=== PATIENT | male | born 1965 | race American Indian/Alaskan Native ===

== ENCOUNTER 2021-01-22 19:48 | Emergency (ER) | payer OTHER ==
--- NOTE | 2021-01-22 20:40 | Event Note ---
ED Screening Note Date of service: 01/22/21 Time: 20:38 ED Screening Note: Pt is a 55 y/o male who presents for abdominal pain x 3 days, pt states dx with Jian, was advised to present to ED for same, pt states abd pain is rated as 5/10 sharp achy . This initial assessment/diagnostic orders/clinical plan/treatment(s) is/are subject to change based on patients health status, clinical progression and re- assessment by fellow clinical providers in the ED. Further treatment and workup at subsequent clinical providers discretion. Patient/guardian urged not to elope from the ED as their condition may be serious if not clinically assessed and managed. Initial orders include:
[2021-01-22 21:12] LABS: Basophils % (Auto) 0.7 % (0.0-1.8); Eosinophils # (Auto) 0.4 K/mm3 (0.0-0.4); Eosinophils % (Auto) 7.2 % (0.0-4.3); Lymphocytes # (Auto) 2.6 K/mm3 (1.2-5.4); Lymphocytes % (Auto) 47.9 % (13.4-35.0); Mean Corpuscular HGB Conc 36 % (32-34); Mean Corpuscular Volume 93 fl (84-94); Monocytes # (Auto) 0.5 K/mm3 (0.0-0.8); Monocytes % (Auto) 9.1 % (0.0-7.3); Platelet Count 241 K/mm3 (140-440); Red Blood Count 4.32 M/mm3 (3.65-5.03); Red Cell Distribution Width 15.7 % (13.2-15.2)
[2021-01-22 21:14] LABS: Hematocrit 40.1 % (35.5-45.6); Hemoglobin 14.4 gm/dl (11.8-15.2)
[2021-01-22 21:28] LABS: Alanine Aminotransferase 22 units/L (7-56); Albumin 4.1 g/dL (3.9-5); BUN/Creatinine Ratio 8; Blood Urea Nitrogen 7 mg/dL (9-20); Calcium 9.1 mg/dL (8.4-10.2); Hemolysis Index 16
[2021-01-23 00:55] VITALS: BP 170/104
--- NOTE | 2021-01-23 00:57 | Emergency Department Report ---
ED General Adult HPI - General Chief complaint: Abdominal Pain Stated complaint: N/V, ABDOMINAL PAIN Time Seen by Provider: 01/23/21 00:47 Source: patient Mode of arrival: Ambulatory Limitations: No Limitations - History of Present Illness Initial comments: Patient is a 55-year-old male presents emergency room with complaints of wanting testing for H. pylori. He states that his tested positive for H. pylori when she was at [facility] and they advised him to get testing as well. He has not followed up with her primary care doctor or GI doctor. He states 2 days ago he had some nausea and a couple episodes of vomiting with that has comple tely resolved. He denies any symptoms at all currently. He denies any abdominal pain, back pain, chest pain, fever, diarrhea, hematochezia, hematemesis, melena. He denies any past medical history. No allergies to medications. - Related Data Previous Rx's Medication Instructions Recorded Last Taken Type Famotidine [Pepcid] 40 mg PO QHS #14 tablet 01/23/21 Unknown Rx Ondansetron [Zofran Odt] 4 mg PO Q8HR PRN #10 tab.rapdis 01/23/21 Unknown Rx Allergies Allergy/AdvReac Type Severity Reaction Status Date / Time peanut Allergy Hives Verified 11/13/18 23:56 ED Review of Systems ROS: Stated complaint: N/V, ABDOMINAL PAIN Other details as noted in HPI Comment: All other systems reviewed and negative ED Past Medical Hx - Past Medical History Previous Medical History?: No - Surgical History Past Surgical History?: Yes Additional Surgical History: sinus - Social History Smoking Status: Current Some Day Smoker Substance Use Type: None - Medications Home Medications: Home Medications Medication Instructions Recorded Confirmed Last Taken Type Famotidine [Pepcid] 40 mg PO QHS #14 tablet 01/23/21 Unknown Rx Ondansetron [Zofran Odt] 4 mg PO Q8HR PRN #10 tab.rapdis 01/23/21 Unknown Rx ED Physical Exam - General Limitations: No Limitations General appearance: alert, in no apparent distress - Head Head exam: Present: atraumatic, normocephalic - Eye Eye exam: Present: normal appearance - ENT ENT exam: Present: mucous membranes moist - Respiratory Respiratory exam: Present: normal lung sounds bilaterally. Absent: respiratory distress, wheezes, rales, rhonchi, stridor, chest wall tenderness, accessory muscle use, decreased breath sounds, prolonged expiratory - Cardiovascular Cardiovascular Exam: Present: regular rate, normal rhythm, normal heart sounds. Absent: systolic murmur, diastolic murmur, rubs, gallop - GI/Abdominal GI/Abdominal exam: Present: soft, normal bowel sounds. Absent: distended, tenderness, guarding, rebound, rigid - Neurological Exam Neurological exam: Present: alert, oriented X3 - Psychiatric Psychiatric exam: Present: normal affect, normal mood - Skin Skin exam: Present: warm, dry, intact ED Course Vital Signs 01/22/21 01/23/21 20:37 00:54 Temperature 97.9 F Pulse Rate 83 73 Respiratory 18 Rate Blood Pressure 161/109 Blood Pressure 170/104 [Left] O2 Sat by Pulse 98 100 Oximetry ED Medical Decision Making - Lab Data Result diagrams: 01/22/21 20:54 01/22/21 20:54 Lab Results 01/22/21 01/22/21 Range/Units 20:54 20:54 WBC 5.4 (4.5-11.0) K/mm3 RBC 4.32 (3.65-5.03) M/mm3 Hgb 14.4 (11.8-15.2) gm/dl Hct 40.1 (35.5-45.6) % MCV 93 (84-94) fl MCH 33 H (28-32) pg MCHC 36 H (32-34) % RDW 15.7 H (13.2-15.2) % Plt Count 241 (140-440) K/mm3 Lymph % (Auto) 47.9 H (13.4-35.0) % [place] % (Auto) 9.1 H (0.0-7.3) % Eos % (Auto) 7.2 H (0.0-4.3) % Baso % (Auto) 0.7 (0.0-1.8) % Lymph # (Auto) 2.6 (1.2-5.4) K/mm3 [place] # (Auto) 0.5 (0.0-0.8) K/mm3 Eos # (Auto) 0.4 (0.0-0.4) K/mm3 Baso # (Auto) 0.0 (0.0-0.1) K/mm3 Seg Neutrophils % 35.1 L (40.0-70.0) % Seg Neutrophils # 1.9 (1.8-7.7) K/mm3 Sodium 137 (137-145) mmol/L Potassium 4.1 (3.6-5.0) mmol/L Chloride 101.9 (98-107) mmol/L Carbon Dioxide 27 (22-30) mmol/L Anion Gap 12 mmol/L BUN 7 L (9-20) mg/dL Creatinine 0.9 (0.8-1.3) mg/dL Estimated GFR > 60 ml/min BUN/Creatinine Ratio 8 % Glucose 98 (75-100) mg/dL Calcium 9.1 (8.4-10.2) mg/dL Total Bilirubin 1.00 (0.1-1.2) mg/dL AST 23 (5-40) units/L ALT 22 (7-56) units/L Alkaline Phosphatase 68 (35-129) units/L Total Protein 7.5 (6.3-8.2) g/dL Albumin 4.1 (3.9-5) g/dL Albumin/Globulin Ratio 1.2 % Lipase 28 (13-60) units/L - Medical Decision Making Patient is a 55-year-old male presents emergency room with complaints of wanting testing for H. pylori. He states that his tested positive for H. pylori when she was at [facility] and they advised him to get testing as well. He has not followed up with her primary care doctor or GI doctor. He states 2 days ago he had some nausea and a couple episodes of vomiting with that has completely resolved. He denies any symptoms at all currently. He denies any abdominal pain, back pain, chest pain, fever, diarrhea, hematochezia, hematemesis, melena. He denies any past medical history. No allergies to medications. Vitals with elevated blood pressure, otherwise stable, discussed elevation of blood pressure with patient, discussed the importance of primary care follow-up, he states he does have a primary care doctor, discussed low- sodium diet, discussed keeping a blood pressure log, discussed lifestyle modifications. Patient is currently asymptomatic. He has no abnormality on physical exam as documented in chart. Labs are normal. He has no signs of any GI bleeding. He has no abdominal pain. He has no vomiting. Patient will be referred for outpatient GI and outpatient primary care follow-up. advised pt Please take medication as prescribed. Increase your water intake. Follow-up with a primary care doctor with GI doctor regarding H. pylori testing. Return to emergency room for any new or worsening symptoms. Please keep a blood pressure log and take your blood pressure and take this to your primary care doctor. Eat a low-sodium diet. increase your water intake. Incorporate 30 to 60 minutes of daily exercise. Critical care attestation.: If time is entered above; I have spent that time in minutes in the direct care of this critically ill patient, excluding procedure time. ED Disposition Clinical Impression: Elevated blood pressure reading Nausea & vomiting Qualifiers: Vomiting type: unspecified Vomiting Intractability: non-intractable Qualified Code(s): R11.2 - Nausea with vomiting, unspecified Disposition: TO HOME OR SELFCARE Is pt being admited?: No Does the pt Need Aspirin: No Condition: Stable Instructions: Nausea and Vomiting, Adult, Low-Sodium Eating Plan Additional Instructions: Please take medication as prescribed. Increase your water intake. Follow-up with a primary care doctor with GI doctor regarding H. pylori testing. Return to emergency room for any new or worsening symptoms. Please keep a blood pressure log and take your blood pressure and take this to your primary care doctor. Eat a low-sodium diet. increase your water intake. Incorporate 30 to 60 minutes of daily exercise. Prescriptions: Famotidine [Pepcid] 40 mg PO QHS #14 tablet Ondansetron [Zofran Odt] 4 mg PO Q8HR PRN #10 tab.rapdis PRN Reason: nausea/vomiting Referrals: PRIMARY CARE, [Primary Care Provider] - 2-3 Days [facility] [Provider Group] - 2-3 Days Time of Disposition: 00:56 Print Language: SERBIAN
== END 2021-01-23 01:25 | disposition home or self-care (01) ==
LOC: ED 19:48
DX: R03.0 Elevated blood-pressure reading, without diagnosis of hypertension (principal); R11.2 Nausea with vomiting, unspecified; F17.200 Nicotine dependence, unspecified, uncomplicated; Z79.899 Other long term (current) drug therapy
CPT/HCPCS: 36415; 80053; 83690; 85025; 99283